=== PATIENT | female | born 1935 | race Caucasian/White ===

== ENCOUNTER 2017-06-02 19:31 | Emergency (ER) | payer MEDICARE, BC ==
[2017-06-02] MEDS ORDERED: Diphtheria,Pertussis(Acell),Tetanus Vaccine 0.5 ML Syringe IM ONE (19:45)
[2017-06-02] MEDS ORDERED: Sodium Chloride 0.9% 10 ML Syringe FLUSH PRN (20:37)
[2017-06-02] MEDS ORDERED: Sodium Chloride 0.9% 2.5 ML Syringe FLUSH PRN (20:37)
[2017-06-02] MEDS ORDERED: Sodium Chloride 0.9% 1,000 ML IV ONE (21:29)
[2017-06-02] MEDS ORDERED: Lidocaine 1% 20 ML MDV INJECT ONE (21:30)
--- NOTE | 2017-06-02 21:34 | EDM.PDOC ---
ED HPI GENERAL MEDICAL PROBLEM - General Chief Complaint: Laceration Stated Complaint: FALL/LACERATION LT CHEEK Time Seen by Provider: 06/02/17 20:00 Source of Information: Reports: Patient, Family, RN - History of Present Illness INITIAL COMMENTS - FREE TEXT/NARRATIVE: She was found on the floor. She was conscious. There was no known LOC but the patient does not remember falling. She noted a laceration on her left cheek. no neck pain. Left Face Pain Score (Numeric/FACES): 4 - Related Data Allergies Allergy/AdvReac Type Severity Reaction Status Date / Time decaf Allergy Vomiting Uncoded 06/02/17 19:53 msg Allergy Vomiting Uncoded 06/02/17 19:53 Past Medical History - Past Health History Medical/Surgical History: Denies Medical/Surgical History Cardiovascular History: Reports: Hypertension Gastrointestinal History: Denies: Cirrhosis Genitourinary History: Denies: Chronic Renal Insuffiency [employer] History: Reports: - Past Surgical History Cardiovascular Surgical History: Reports: None Social & Family History - Family History Family Medical History: Noncontributory - Tobacco Use Smoking Status *Q: Current Every Day Smoker Years of Tobacco use: 60 Packs/Tins Daily: 1 - Caffeine Use Caffeine Use: Reports: Coffee - Recreational Drug Use Recreational Drug Use: No ED ROS GENERAL - Review of Systems Review Of Systems: See Below Constitutional: Denies: Fever, Chills Respiratory: Denies: Shortness of Breath, Cough, Sputum Cardiovascular: Denies: Chest Pain GI/Abdominal: Denies: Abdominal Pain ED EXAM, SKIN/RASH Exam: See Below Text/Narrative:: alert EOMs normal neck supple and non tender no scalp injury noted left cheek with an oblique 3 cm laceration to the subcutaneous tissue no facial motor asymmetry no motor asymmetry no chest tenderness ED SKIN PROCEDURES - Additional/Other Procedure(s) Other (Free Text) Procedure(s): after local cleansing and local infiltrative anesthesia with 1% lidocaine, wound closed with three simple interrupted 4.0 nylon sutures. Course - Vital Signs Last Recorded V/S: Last Vital Signs Temp 98.8 F 06/02/17 23:25 Pulse 104 H 06/02/17 23:51 Resp 21 H 06/02/17 23:51 BP 155/97 H 06/02/17 23:51 Pulse Ox 94 L 06/02/17 23:51 - Orders/Labs/Meds Orders: Active Orders 24 hr Category Date Time Status Vaccines to be Administered [RC] PER UNIT ROUTINE Care 06/02/17 19:45 Active Ang Chest [CT] Stat Exams 06/02/17 21:25 Taken Cervical Spine wo Cont [CT] Stat Exams 06/02/17 19:43 Taken Head wo Cont [CT] Stat Exams 06/02/17 19:43 Taken Max Facial Sinus wo Cont [CT] Stat Exams 06/02/17 19:43 Taken Sodium Chloride 0.9% [Saline Flush] Med 06/02/17 20:37 Active 10 ml FLUSH ASDIRECTED PRN Sodium Chloride 0.9% [Saline Flush] Med 06/02/17 20:37 Active 2.5 ml FLUSH ASDIRECTED PRN Saline Lock Insert [OM.PC] Stat Oth 06/02/17 20:38 Ordered Medication Orders Sodium Chloride (Saline Flush) 10 ml FLUSH ASDIRECTED PRN PRN Reason: Keep Vein Open Sodium Chloride (Saline Flush) 2.5 ml FLUSH ASDIRECTED PRN PRN Reason: Keep Vein Open Labs: Laboratory Tests 06/02/17 06/02/17 Range/Units 20:42 20:42 WBC 16.77 H (4.0-11.0) K/uL RBC 4.62 (4.30-5.90) M/uL Hgb 16.0 (12.0-16.0) g/dL Hct 45.0 (36.0-46.0) % MCV 97.4 (80.0-98.0) fL MCH 34.6 H (27.0-32.0) pg MCHC 35.6 (31.0-37.0) g/dL RDW Std Deviation 45.6 (28.0-62.0) fl RDW Coeff of David 13 (11.0-15.0) % Plt Count 226 (150-400) K/uL MPV 9.90 (7.40-12.00) fL Neut % (Auto) 83.0 H (48.0-80.0) % Lymph % (Auto) 6.1 L (16.0-40.0) % Hyde % (Auto) 10.8 (0.0-15.0) % Eos % (Auto) 0.0 (0.0-7.0) % Baso % (Auto) 0.1 (0.0-1.5) % Neut # (Auto) 13.9 H (1.4-5.7) K/uL Lymph # (Auto) 1.0 (0.6-2.4) K/uL Hyde # (Auto) 1.8 H (0.0-0.8) K/uL Eos # (Auto) 0.0 (0.0-0.7) K/uL Baso # (Auto) 0.0 (0.0-0.1) K/uL Nucleated RBC % 0.0 /100WBC Nucleated RBCs # 0 K/uL Sodium 131 L (136-146) mmol/L Potassium 3.6 (3.5-5.1) mmol/L Chloride 92 L (98-110) mmol/L Carbon Dioxide 24 (21-31) mmol/L BUN 21 (6.0-23.0) mg/dL Creatinine 1.0 (0.6-1.5) mg/dL Est Cr Clr Drug Dosing 34.92 mL/min Estimated GFR (MDRD) 53.1 ml/min Glucose 145 H (60-110) mg/dL Calcium 10.5 (8.8-10.8) mg/dL Magnesium 1.8 (1.5-2.3) mEq/L Meds: Medications Generic Name Dose Route Start Last Admin Trade Name Freq PRN Reason Stop Dose Admin Sodium Chloride 10 ml 06/02/17 20:37 Saline Flush FLUSH ASDIRECTED PRN Keep Vein Open Sodium Chloride 2.5 ml 06/02/17 20:37 Saline Flush FLUSH ASDIRECTED PRN Keep Vein Open Discontinued Medications Generic Name Dose Route Start Last Admin Trade Name Freq PRN Reason Stop Dose Admin Bacitracin 1 dose 06/02/17 23:11 Bacitracin Oint 1 Gm TOP 06/02/17 23:12 ONETIME ONE Diphtheria/Tetanus/Acell Pertussis 0.5 ml 06/02/17 19:45 06/02/17 20:04 Adacel IM 06/02/17 19:46 Not Given .ONCE ONE Sodium Chloride 1,000 mls @ 999 mls/hr 06/02/17 21:29 06/02/17 21:34 Normal Saline IV 06/02/17 22:29 999 mls/hr .Bolus ONE Administration Iopamidol 75 ml 06/02/17 22:01 06/02/17 22:02 Isovue Multipack-370 (76%) IVPUSH 06/02/17 22:02 75 ml ONETIME STA Administration Lidocaine HCl Confirm 06/02/17 21:24 06/02/17 21:35 Xylocaine-Mpf 1% Administered 06/02/17 21:25 Not Given Dose 5 ml .ROUTE .STK-MED ONE Lidocaine HCl 20 ml 06/02/17 21:30 06/02/17 21:40 Xylocaine 1% INJECT 06/02/17 21:31 20 ml ONETIME ONE Administration - Re-Assessments/Exams Free Text/Narrative Re-Assessment/Exam: 06/02/17 23:53 I spoke with virtual radiology. Verbal report of mediastinal blood with hemorrhage around the aorta but no contrast leaking out of the lumen of the aortic which is c/w no active current aortic bleeding. I discussed with the patient and her daughter regarding the need for transfer I discussed with DR Cardoso, [facility] who accepts in transfer. Departure - Departure Time of Disposition: 23:56 Disposition: DC/Tfer to Acute Hospital 02 Condition: Serious Clinical Impression: Facial laceration, Fall, Aortic rupture - Discharge Information Referrals: Blair Fournier MD [Primary Care Provider] - Forms: ED Department Discharge - My Orders Last 24 Hours: My Active Orders 06/02/17 19:43 Cervical Spine wo Cont [CT] Stat Head wo Cont [CT] Stat Max Facial Sinus wo Cont [CT] Stat 06/02/17 19:45 Vaccines to be Administered [RC] PER UNIT ROUTINE 06/02/17 20:37 Sodium Chloride 0.9% [Saline Flush] 10 ml FLUSH ASDIRECTED PRN Sodium Chloride 0.9% [Saline Flush] 2.5 ml FLUSH ASDIRECTED PRN 06/02/17 20:38 Saline Lock Insert [OM.PC] Stat 06/02/17 21:25 Ang Chest [CT] Stat - Assessment/Plan Last 24 Hours: My Active Orders 06/02/17 19:43 Cervical Spine wo Cont [CT] Stat Head wo Cont [CT] Stat Max Facial Sinus wo Cont [CT] Stat 06/02/17 19:45 Vaccines to be Administered [RC] PER UNIT ROUTINE 06/02/17 20:37 Sodium Chloride 0.9% [Saline Flush] 10 ml FLUSH ASDIRECTED PRN Sodium Chloride 0.9% [Saline Flush] 2.5 ml FLUSH ASDIRECTED PRN 06/02/17 20:38 Saline Lock Insert [OM.PC] Stat 06/02/17 21:25 Ang Chest [CT] Stat
[2017-06-02] MEDS ORDERED: Iopamidol 755 MG/ML 500 ML Multipack Bottle IVPUSH STA (22:01)
[2017-06-02] MEDS ORDERED: Bacitracin Oint 1 GM U/D Packet TOP ONE (23:11)
--- NOTE | 2017-06-03 15:29 | CT ---
EXAM DATE: 06/02/17 PATIENT'S AGE: 82 Patient: ANIRUDH SORENSEN Facility: [place], [place] Site . Site : 1935 Study: CT Head [id number]/[id number] 8:22:04 PM Ordering Physician: John Marcus Final Report: INDICATION: trauma FINDINGS: No intracranial hemorrhage, mass effect, or evidence for acute infarction. Patchy low attenuation changes in the white matter of both cerebral hemispheres consistent with chronic small vessel ischemic changes. Age- appropriate cerebral and cerebellar volume loss. Intracranial vascular calcifications. IMPRESSION: 1. No acute findings. 2. Chronic age-related changes. Please note that all CT scans performed at this facility use dose modulation, iterative reconstruction, and/or weight based dosing when appropriate to reduce radiation dose to as low as reasonably achievable. Dictated by: Neno He MD @ 06/02/2017 20:24:37 (Electronic Signature) Report Signed by Proxy. [facility]
--- NOTE | 2017-06-03 15:30 | CT ---
EXAM DATE: 06/02/17 PATIENT'S AGE: 82 Patient: ANIRUDH SORENSEN Facility: [place], [place] Site . Site : 1935 Study: CT Facial [id number]/29/[id number] 8:22:39 PM Ordering Physician: John Marcus Final Report: INDICATION: trauma Technique Noncontrast facial bone CT. Three plane reformatted images. Indication Trauma. Findings No facial bone fractures. The globes and intraorbital contents appear intact. No sinus fluid. Small soft tissue hematoma in the left maxillary area. Exam otherwise unremarkable. Impression No facial fractures. Please note that all CT scans performed at this facility use dose modulation, iterative reconstruction, and/or weight based dosing when appropriate to reduce radiation dose to as low as reasonably achievable. Prelim Report By Dr. Neno He @ 06/02/2017 8:37:50 PM Dictated by: Neno He MD @ 06/02/2017 20:38:17 (Electronic Signature) Report Signed by Proxy. [facility]
--- NOTE | 2017-06-03 15:31 | CT ---
EXAM DATE: 06/02/17 PATIENT'S AGE: 82 Patient: ANIRUDH SORENSEN Facility: [place], [place] Site . Site : 1935 Study: CT Spine Cervical [id number]/29/[id number] 8:23:05 PM Ordering Physician: John Marcus Final Report: TECHNIQUE: Noncontrast CT cervical spine. Three plane reformatted images. INDICATION: Trauma. FINDINGS: No acute cervical spine fracture, dislocation, or prevertebral soft tissue swelling. Marked diffuse cervical spondylosis. Canal is patent. No evidence for epidural hematoma. Paravertebral soft tissues are unremarkable. Rind of high-density around the visualized portion of the aortic arch. Stranding in the left superior mediastinum. Findings are concerning for aortic injury. There is a tiny left pleural effusion. 3.1 x 2.1 cm mixed density mass in the left supraclavicular region image 55 of series 3 are 2, possibly a hematoma or lymph node. IMPRESSION: 1. Findings suspicious for aortic injury. CT angiogram of the chest is recommended for further evaluation. 2. Hematoma versus mass in the left supraclavicular fossa. 3. No acute cervical spine findings. Findings discussed with Dr. Lopez 20:30 . Please note that all CT scans performed at this facility use dose modulation, iterative reconstruction, and/or weight based dosing when appropriate to reduce radiation dose to as low as reasonably achievable. Dictated by Neno He MD @ 06/02/2017 8:34:19 PM Dictated by: Neno He MD @ 06/02/2017 20:34:31 (Electronic Signature) Report Signed by Proxy. [facility]
--- NOTE | 2017-06-03 15:33 | CT ---
EXAM DATE: 06/02/17 PATIENT'S AGE: 82 Patient: ANIRUDH SORENSEN Facility: [place], [place] Site . Site : 1935 Study: CT Chest Angio [id number] 11:04:08 PM Ordering Physician: John Marcus Final Report: INDICATION: Fall from a standing position. TECHNIQUE: CT chest angiogram acquired with IV contrast. COMPARISON: None FINDINGS: Cardiovascular structures: Large periaortic hematoma is present from the level of the aortic arch extending down to the distal descending aorta and proximal abdominal aorta. No evidence of extravasation of IV contrast from the aortic lumen. Suggestion of the intimal flap involving the aortic arch laterally best seen on coronal image 35 and axial image 27. No definite traumatic pseudoaneurysm. Aneurysmal dilatation of the ascending aorta to 4.3 centimeters an aneurysmal dilatation of the infrarenal abdominal aorta at 4.9 centimeters. Normal appearing proximal subclavian and carotid arteries. Cardiomegaly. Pulmonary arteries are grossly normal in appearance. Mediastinum and patricio: No mass or adenopathy. Lungs: Clear. Pleura and pericardium: Small mixed density left pleural effusion. Trace mixed density pericardial effusion. Chest wall and axilla: No mass or adenopathy. Bones: No significant findings. IMPRESSION: Kassidy-aortic hematoma extending from the proximal level of the junction of the ascending aorta and arch and extending distally to the upper abdomen. The hematoma extends into the aortopulmonary window and paratracheal/subcarinal region. No evidence of acute extravasation of contrast from the aortic lumen. Possible suggestion of an intimal flap at the level of the aortic arch laterally best seen on axial image 27 and coronal image 35. Aneurysmal dilatation of the ascending aorta measured up to 4.3 centimeters aneurysmal dilatation of the infrarenal abdominal aorta measuring up to 4.9 centimeters. Associated mixed density left pleural effusion. No associated rib fractures, pneumothorax or pulmonary contusion. Findings are atypical for traumatic injury to the aorta as this is usually results from high velocity related trauma. Intimal flaps at the level of the aortic arch cannot be excluded as well as origin from the abdominal aorta. Trace mixed density pericardial effusion. Findings discussed on 06/02/2017 and 07/04/[address] Lopez. Dictated by Bridger Machaod MD @ 06/02/2017 11:51:36 PM Dictated by: Bridger Machado MD @ 06/02/2017 23:52:28 ----- ADDENDUM ----- Findings are worrisome for impending aortic rupture. Findings were discussed with Dr. Lopez: Dictated by Bridger Machado MD @ Jun 03 2017 3:26AM (Electronic Signature) Report Signed by Proxy. [facility]
== END 2017-06-03 00:39 ==
LOC: MW.ED 19:31
DX: S01.412A Laceration without foreign body of left cheek and temporomandibular area, initial encounter (principal); I71.8 Aortic aneurysm of unspecified site, ruptured; I12.9 Hypertensive chronic kidney disease with stage 1 through stage 4 chronic kidney disease, or unspecified chronic kidney disease; N18.9 Chronic kidney disease, unspecified; F17.210 Nicotine dependence, cigarettes, uncomplicated; W19.XXXA Unspecified fall, initial encounter
CPT/HCPCS: 12013; 36415; 70450; 70486; 71275; 72125; 80048; 83735; 85025; 96360; 99285; J7040; Q9967; 99282